=== PATIENT | female | born 1985 | race American Indian/Alaskan Native ===

== ENCOUNTER 2018-11-07 14:11 | Emergency (ER) | payer OTHER ==
--- NOTE | 2018-11-07 14:35 | Event Note ---
ED Screening Note Date of service: 11/07/18 Time: 14:34 ED Screening Note: 33 y/o female comes in for vaginal discharge with a smell and abdominal pain. This initial assessment/diagnostic orders/clinical plan/treatment(s) is/are subject to change based on patients health status, clinical progression and re- assessment by fellow clinical providers in the ED. Further treatment and workup at subsequent clinical providers discretion. Patient/guardian urged not to elope from the ED as their condition may be serious if not clinically assessed and managed. Initial orders include:
[2018-11-07 15:31] LABS: HCG Qualitative,Urine Negative (Negative)
[2018-11-07 15:37] LABS: Bacteria,Urine 1+ /HPF (Negative); Bilirubin,Urine NEG (Negative); Blood,Urine NEG (Negative); Color,Urine Yellow (Yellow); Mucus,Urine FEW /HPF; Protein,Urine <15 mg/dL mg/dL (Negative)
[2018-11-07] MEDS ORDERED: XYLOCAINE 1% MPF 5 mL INFILTRATI ONE (17:10)
[2018-11-07] MEDS ORDERED: ROCEPHIN IM ONE (17:10)
[2018-11-07] MEDS ORDERED: ZITHROMAX PO ONE (17:10)
--- NOTE | 2018-11-07 17:31 | Emergency Department Report ---
ED Female HPI - General Chief complaint: Urogenital-Female Stated complaint: STD Time Seen by Provider: 11/07/18 17:10 Source: patient Mode of arrival: Ambulatory Limitations: No Limitations - History of Present Illness Initial comments: pt is a 33 y/o aaf who presents for vaginal discharge x 3 days states contact with partner who who advises being pos for chlamydia and gonorrhea discharge is white green malodorous there is no fever no chills no n/v, lMP 2 weeks ago. Complaint: vaginal discharge Onset/Timin -: days(s) Location: suprapubic Radiation: suprapubic Severity: moderate Severity scale (0 -10): 4 Quality: other (discharge ) Consistency: constant Improves with: none Worsens with: none Are you Now?: No Last Menstrual Period: 10/24/18 EDC: 07/31/19 Associated Symptoms: vaginal discharge. denies: vaginal bleeding, abdominal pain - Related Data Sexually active: Yes Previous Rx's Medication Instructions Recorded Last Taken Type metroNIDAZOLE [Flagyl] 500 mg PO BID 10 Days #20 tab 11/07/18 Unknown Rx Allergies Allergy/AdvReac Type Severity Reaction Status Date / Time No Known Allergies Allergy Unverified 11/07/18 14:29 ED Review of Systems ROS: Stated complaint: STD Other details as noted in HPI Constitutional: denies: chills, fever Eyes: denies: eye pain, eye discharge, vision change ENT: denies: ear pain, throat pain Respiratory: denies: cough, shortness of breath, wheezing Cardiovascular: denies: chest pain, palpitations Endocrine: no symptoms reported Gastrointestinal: denies: abdominal pain, nausea, diarrhea Genitourinary: discharge. denies: urgency, dysuria, frequency, hematuria Musculoskeletal: denies: back pain, joint swelling, arthralgia Skin: denies: rash, lesions Neurological: denies: headache, weakness, paresthesias Psychiatric: denies: anxiety, depression Hematological/Lymphatic: denies: easy bleeding, easy bruising ED Past Medical Hx - Past Medical History Previous Medical History?: No - Surgical History Past Surgical History?: No - Social History Smoking Status: Current Every Day Smoker Substance Use Type: Alcohol - Medications Home Medications: Home Medications Medication Instructions Recorded Confirmed Last Taken Type metroNIDAZOLE [Flagyl] 500 mg PO BID 10 Days #20 tab 11/07/18 Unknown Rx ED Physical Exam - General Limitations: No Limitations General appearance: alert, in no apparent distress - Head Head exam: Present: atraumatic, normocephalic - Eye Eye exam: Present: normal appearance, PERRL, EOMI Pupils: Present: normal accommodation - ENT ENT exam: Present: mucous membranes moist - Neck Neck exam: Present: normal inspection - Respiratory Respiratory exam: Present: normal lung sounds bilaterally. Absent: respiratory distress - Cardiovascular Cardiovascular Exam: Present: regular rate, normal rhythm, normal heart sounds. Absent: systolic murmur, diastolic murmur, rubs, gallop - GI/Abdominal GI/Abdominal exam: Present: soft, normal bowel sounds. Absent: distended, tenderness, guarding, rebound, rigid, bruit, hernia - Rectal Rectal exam: Present: deferred - External exam: Present: other (exam deferred per patient ) - Extremities Exam Extremities exam: Present: normal inspection, full ROM, normal capillary refill. Absent: tenderness - Back Exam Back exam: Present: normal inspection, full ROM. Absent: tenderness, CVA tender ness (R), CVA tenderness (L), muscle spasm, rash noted - Neurological Exam Neurological exam: Present: alert, oriented X3, CN II-XII intact, normal gait, reflexes normal. Absent: motor sensory deficit - Psychiatric Psychiatric exam: Present: normal affect - Skin Skin exam: Present: warm, dry, intact, normal color. Absent: rash ED Course Vital Signs 11/07/18 14:33 Temperature 98.6 F Pulse Rate 87 Respiratory 16 Rate Blood Pressure 125/82 O2 Sat by Pulse 96 Oximetry ED Medical Decision Making - Lab Data Labs 11/07/18 14:44 Urine Color Yellow Urine Turbidity Slightly-cloudy Urine pH 7.0 Ur Specific Rogers 1.018 Urine Protein <15 mg/dl Urine Glucose (UA) Neg Urine Ketones Neg Urine Blood Neg Urine Nitrite Neg Ur Reducing Substances Not Reportable Urine Bilirubin Neg Urine Ictotest Not Reportable Urine Urobilinogen 2.0 Ur Leukocyte Esterase Neg Urine WBC (Auto) 1.0 Urine RBC (Auto) 2.0 U Epithel Cells (Auto) 7.0 Urine Bacteria (Auto) 1+ Urine Mucus Few Urine HCG, Qual Negative - Medical Decision Making pt requesting prophylactic tx for STD this is reasonable will tx for same pt will followup with health department for hiv and hsv screening, Critical care attestation.: If time is entered above; I have spent that time in minutes in the direct care of this critically ill patient, excluding procedure time. ED Disposition Clinical Impression: Exposure to STD Disposition: DC- TO HOME OR SELFCARE Is pt being admited?: No Does the pt Need Aspirin: No Condition: Stable Instructions: Sexually Transmitted Diseases (ED) Prescriptions: metroNIDAZOLE [Flagyl] 500 mg PO BID 10 Days #20 tab Referrals: LAKESHIA RABAGO MD [Primary Care Provider] - 3-5 Days Forms: Work/School Release Form(ED) Time of Disposition: 17:37
[2018-11-07] MEDS: DIFLUCAN PO ONE ×2 (18:06→19:01)
[2018-11-07 19:05] VITALS: BP 125/80
== END 2018-11-07 19:05 | disposition home or self-care (01) ==
LOC: ED 14:11
DX: N89.8 Other specified noninflammatory disorders of vagina (principal); F17.200 Nicotine dependence, unspecified, uncomplicated; Z79.899 Other long term (current) drug therapy
CPT/HCPCS: 81001; 81025; 96372; 99283; J0696

== ENCOUNTER 2018-12-30 19:47 | Emergency (ER) | payer OTHER ==
--- NOTE | 2018-12-30 20:05 | Event Note ---
ED Screening Note ED Screening Note: right knee pain that began a week ago no fall or injury states she injured in her teens pt states she is having mild substernal CP no SOB no V/D LNMP: last week PMHx asthma, migraines allergy to toradol, fioricet This initial assessment/diagnostic orders/clinical plan/treatment(s) is/are subject to change based on patients health status, clinical progression and re- assessment by fellow clinical providers in the ED. Further treatment and workup at subsequent clinical providers discretion. Patient/guardian urged not to elope from the ED as their condition may be serious if not clinically assessed and managed. Initial orders include: CP protocol, right knee xr
[2018-12-30 20:06] VITALS: BP 140/94
[2018-12-30 20:17] LABS: Basophils # (Auto) 0.1 K/mm3 (0.0-0.1); Basophils % (Auto) 0.7 % (0.0-1.8); Eosinophils # (Auto) 0.2 K/mm3 (0.0-0.4); Eosinophils % (Auto) 1.6 % (0.0-4.3); Hematocrit 39.6 % (30.3-42.9); Hemoglobin 13.3 gm/dl (10.1-14.3); Lymphocytes # (Auto) 3.3 K/mm3 (1.2-5.4); Lymphocytes % (Auto) 33.6 % (13.4-35.0); Mean Corpuscular HGB Conc 34 % (30-34); Mean Corpuscular Volume 90 fl (79-97); Monocytes # (Auto) 0.7 K/mm3 (0.0-0.8); Monocytes % (Auto) 6.8 % (0.0-7.3); Platelet Count 252 K/mm3 (140-440); Red Blood Count 4.41 M/mm3 (3.65-5.03); Red Cell Distribution Width 13.7 % (13.2-15.2)
[2018-12-30 20:47] LABS: BUN/Creatinine Ratio 19; Blood Urea Nitrogen 15 mg/dL (7-17); Calcium 9.2 mg/dL (8.4-10.2); Hemolysis Index 7
--- NOTE | 2018-12-30 21:35 | XRay Report ---
CHEST 2 VIEWS INDICATION: CP. COMPARISON: none FINDINGS: Support devices: None. Heart: Within normal limits. Lungs: No acute air space or interstitial disease. Pleura: No significant pleural effusion. No pneumothorax. Additional findings: None. IMPRESSION: 1. No acute findings. Signer Name: Jayden Muñiz MD Signed: 12/30/2018 9:30 PM Workstation Name: [id number]
--- NOTE | 2018-12-30 21:36 | XRay Report ---
HISTORY:right knee pain COMPARISON: None. TECHNIQUE: 3 views of the knee FINDINGS: Bones: No fracture or dislocation. Joint spaces: Maintained. Soft tissues: Small suprapatellar effusion is present. Additional findings: None. IMPRESSION: 1. No significant abnormality. Signer Name: Jayden Muñiz MD Signed: 12/30/2018 9:31 PM Workstation Name: [id number]
--- NOTE | 2018-12-30 23:43 | Emergency Department Report ---
ED General Adult HPI - General Chief complaint: Chest Pain Stated complaint: R KNEE PAIN/SWOLLEN/CHEST PAIN Time Seen by Provider: 12/30/18 20:02 Source: patient Mode of arrival: Ambulatory Limitations: No Limitations - Related Data Previous Rx's Medication Instructions Recorded Last Taken Type metroNIDAZOLE [Flagyl] 500 mg PO BID 10 Days #20 tab 11/07/18 Unknown Rx Cyclobenzaprine [Flexeril] 10 mg PO TID PRN #21 tablet 12/30/18 Unknown Rx Diclofenac EC [Voltaren] 25 mg PO Q8HR PRN #30 tablet 12/30/18 Unknown Rx Famotidine [Pepcid] 20 mg PO BID #60 tablet 12/30/18 Unknown Rx predniSONE [Deltasone] 40 mg PO QDAY 5 Days #10 tab 12/30/18 Unknown Rx Allergies Allergy/AdvReac Type Severity Reaction Status Date / Time acetaminophen [From Fioricet] Allergy Itching Verified 12/30/18 20:08 butalbital [From Fioricet] Allergy Itching Verified 12/30/18 20:08 caffeine [From Fioricet] Allergy Itching Verified 12/30/18 20:08 ketorolac [From Toradol] Allergy Itching Verified 12/30/18 20:07 ED Review of Systems ROS: Stated complaint: R KNEE PAIN/SWOLLEN/CHEST PAIN Other details as noted in HPI ED Past Medical Hx - Past Medical History Previous Medical History?: Yes Hx Headaches / Migraines: Yes Hx Asthma: Yes - Surgical History Past Surgical History?: Yes Additional Surgical History: MRSA right thigh - Social History Smoking Status: Current Every Day Smoker Substance Use Type: Alcohol - Medications Home Medications: Home Medications Medication Instructions Recorded Confirmed Last Taken Type metroNIDAZOLE [Flagyl] 500 mg PO BID 10 Days #20 tab 11/07/18 Unknown Rx Cyclobenzaprine [Flexeril] 10 mg PO TID PRN #21 tablet 12/30/18 Unknown Rx Diclofenac EC [Voltaren] 25 mg PO Q8HR PRN #30 tablet 12/30/18 Unknown Rx Famotidine [Pepcid] 20 mg PO BID #60 tablet 12/30/18 Unknown Rx predniSONE [Deltasone] 40 mg PO QDAY 5 Days #10 tab 12/30/18 Unknown Rx ED Physical Exam - General Limitations: No Limitations General appearance: alert, in no apparent distress - Head Head exam: Present: atraumatic, normocephalic - Eye Eye exam: Present: normal appearance, PERRL, EOMI. Absent: conjunctival injection, nystagmus Pupils: Present: normal accommodation - ENT ENT exam: Present: normal orophraynx, mucous membranes moist, TM's normal bilaterally, normal external ear exam - Neck Neck exam: Present: normal inspection, full ROM. Absent: tenderness, mening ismus, lymphadenopathy, thyromegaly - Respiratory Respiratory exam: Present: normal lung sounds bilaterally, chest wall tenderness (right lateral chest wall tenderness to deep palpation no crepitus no stepoff no ecchymosis ). Absent: respiratory distress, wheezes, rales, rhonchi, stridor, prolonged expiratory - Cardiovascular Cardiovascular Exam: Present: regular rate, normal rhythm, normal heart sounds. Absent: systolic murmur, diastolic murmur, rubs, gallop - GI/Abdominal GI/Abdominal exam: Present: soft, normal bowel sounds. Absent: distended, tenderness, guarding, rebound, rigid, bruit, hernia - Rectal Rectal exam: Present: deferred - Extremities Exam Extremities exam: Present: full ROM, tenderness (right anterior suprapetalar pain to deep palpation ), normal capillary refill, joint swelling. Absent: pedal edema, calf tenderness - Expanded Lower Extremity Exam Right Knee exam: Present: full ROM, tenderness, swelling, effusion (suprapetella), pain w/ pronation/supination, full knee extension. Absent: abrasion, laceration, ecchymosis, deformity, crepidus, dislocation, erythema, posterior draw sign, pain/laxity with valgus, pain/laxity with varus Lower Leg exam: Present: normal inspection, full ROM. Absent: tenderness, swelling Ankle exam: Present: normal inspection, full ROM. Absent: tenderness, swelling Foot/Toe exam: Present: normal inspection, full ROM. Absent: tenderness, swelling Neuro vascular tendon exam: Absent: pulse deficit, motor deficit, sensory deficit, tendon deficit Gait: Positive: observed and normal - Back Exam Back exam: Present: normal inspection, full ROM. Absent: tenderness, CVA tenderness (R), CVA tenderness (L), muscle spasm, paraspinal tenderness, vertebral tenderness, rash noted - Neurological Exam Neurological exam: Present: alert, oriented X3, CN II-XII intact, normal gait, reflexes normal. Absent: motor sensory deficit - Psychiatric Psychiatric exam: Present: normal affect, normal mood - Skin Skin exam: Present: warm, dry, intact, normal color. Absent: rash ED Course Vital Signs 12/30/18 20:03 Temperature 99.1 F Pulse Rate 91 H Respiratory 14 Rate Blood Pressure 140/94 O2 Sat by Pulse 99 Oximetry ED Medical Decision Making - Lab Data Result diagrams: 12/30/18 20:08 12/30/18 20:08 Lab Results 12/30/18 12/30/18 12/30/18 Range/Units 20:08 20:08 20:08 WBC 10.0 (4.5-11.0) K/mm3 RBC 4.41 (3.65-5.03) M/mm3 Hgb 13.3 (10.1-14.3) gm/dl Hct 39.6 (30.3-42.9) % MCV 90 (79-97) fl MCH 30 (28-32) pg MCHC 34 (30-34) % RDW 13.7 (13.2-15.2) % Plt Count 252 (140-440) K/mm3 Lymph % (Auto) 33.6 (13.4-35.0) % [place] % (Auto) 6.8 (0.0-7.3) % Eos % (Auto) 1.6 (0.0-4.3) % Baso % (Auto) 0.7 (0.0-1.8) % Lymph # 3.3 (1.2-5.4) K/mm3 [place] # 0.7 (0.0-0.8) K/mm3 Eos # 0.2 (0.0-0.4) K/mm3 Baso # 0.1 (0.0-0.1) K/mm3 Seg Neutrophils % 57.3 (40.0-70.0) % Seg Neutrophils # 5.7 (1.8-7.7) K/mm3 Sodium 138 (137-145) mmol/L Potassium 3.9 (3.6-5.0) mmol/L Chloride 104.8 (98-107) mmol/L Carbon Dioxide 23 (22-30) mmol/L Anion Gap 14 mmol/L BUN 15 (7-17) mg/dL Creatinine 0.8 (0.7-1.2) mg/dL Estimated GFR > 60 ml/min BUN/Creatinine Ratio 19 % Glucose 98 (65-100) mg/dL Calcium 9.2 (8.4-10.2) mg/dL Troponin T < 0.010 (0.00-0.029) ng/mL HCG, Qual Negative (Negative) - EKG Data EKG shows normal: sinus rhythm, axis, intervals, QRS complexes, ST-T waves Rate: normal - EKG Data When compared to previous EKG there are: previous EKG unavailable Interpretation: normal EKG (EKG Interp by ED Attending NSR no ST Elevated NH ) - Radiology Data Radiology results: report reviewed, image reviewed Ordering Physician: ALYCE THRASHER Date of Service: 12/30/18 Procedure(s): XR knee 3V RT Accession Number(s): [id number] cc: ALYCE THRASHER Fluoro Time In Minutes: HISTORY:right knee pain COMPARISON: None. TECHNIQUE: 3 views of the knee FINDINGS: Bones: No fracture or dislocation. Joint spaces: Maintained. Soft tissues: Small suprapatellar effusion is present. Additional findings: None. IMPRESSION: 1. No significant abnormality. Signer Name: Jayden Muñiz MD Signed: 12/30/2018 9:31 PM Workstation Name: [id number] Transcribed By: HALINA Dictated By: Jayden Muñiz MD Electronically Authenticated By: Jayden Muñiz MD Signed Date/Time: 12/30/182130 DD/ 30 TD/TT: Ordering Physician: ALYCE THRASHER Date of Service: 12/30/18 Procedure(s): XR chest routine 2V Accession Number(s): [id number] cc: ALYCE THRASHER Fluoro Time In Minutes: CHEST 2 VIEWS INDICATION: CP. COMPARISON: none FINDINGS: Support devices: None. Heart: Within normal limits. Lungs: No acute air space or interstitial disease. Pleura: No significant pleural effusion. No pneumothorax. Additional findings: None. IMPRESSION: 1. No acute findings. Signer Name: Jayden Muñiz MD Signed: 12/30/2018 9:30 PM Workstation Name: [id number] Transcribed By: HALINA Dictated By: Jayden Muñiz MD Electronically Authenticated By: Jayden Muñiz MD Signed Date/Time: 12/30/182129 DD/ 29 TD/TT: - Medical Decision Making EKG normal sinus rhythm and no ST elevated NH chest x-ray normal no infiltrates or opacities mild right lateral chest wall pain to deep palpation no deformity crepitus or ecchymosis lungs sounds are clear throughout . No wrist or distress right knee range of motion intact unrestricted some pain to pronation and supination tenderness suprapatellar region with mild effusion x-ray confirms small suprapatellar effusion plan steroids NSAIDs follow up with orthopedic heart score is 0 CHUCKY score 0 patient will be DC'd home in stable condition at this time Critical care attestation.: If time is entered above; I have spent that time in minutes in the direct care of this critically ill patient, excluding procedure time. ED Disposition Clinical Impression: Chest wall pain, Knee effusion, right Strain of knee Qualifiers: Encounter type: initial encounter Laterality: right Qualified Code(s): S86.911A - Strain of unspecified muscle(s) and tendon(s) at lower leg level, right leg, initial encounter Disposition: DC- TO HOME OR SELFCARE Is pt being admited?: No Does the pt Need Aspirin: No Condition: Stable Instructions: Costochondritis (ED), Knee Effusion (ED) Prescriptions: predniSONE [Deltasone] 40 mg PO QDAY 5 Days #10 tab Cyclobenzaprine [Flexeril] 10 mg PO TID PRN #21 tablet PRN Reason: Muscle Spasm Famotidine [Pepcid] 20 mg PO BID #60 tablet Diclofenac EC [Voltaren] 25 mg PO Q8HR PRN #30 tablet PRN Reason: pain Referrals: LORIE MOFFETT MD [Staff Physician] - 3-5 Days ETHEL LAKESHIA FITZPATRICK MD [Primary Care Provider] - 3-5 Days Forms: Work/School Release Form(ED) Time of Disposition: 23:52
[2018-12-31] MEDS ORDERED: TYLENOL PO ONE (00:17)
[2018-12-31] MEDS ORDERED: DELTASONE PO ONE (00:17)
[2018-12-31] MEDS ORDERED: FLEXERIL PO ONE (00:17)
[2018-12-31] MEDS ORDERED: TYLENOL ONE (00:21)
[2018-12-31] MEDS ORDERED: DELTASONE ONE (00:21)
[2018-12-31] MEDS ORDERED: FLEXERIL ONE (00:21)
== END 2018-12-31 00:25 | disposition home or self-care (01) ==
LOC: ED 19:47
DX: S86.911A Strain of unspecified muscle(s) and tendon(s) at lower leg level, right leg, initial encounter (principal); M25.461 Effusion, right knee; R07.89 Other chest pain; G43.909 Migraine, unspecified, not intractable, without status migrainosus; J45.909 Unspecified asthma, uncomplicated; F17.200 Nicotine dependence, unspecified, uncomplicated; Z98.890 Other specified postprocedural states; Z79.899 Other long term (current) drug therapy; Z88.6 Allergy status to analgesic agent; Z88.8 Allergy status to other drugs, medicaments and biological substances; Z91.018 Allergy to other foods; X58.XXXA Exposure to other specified factors, initial encounter; Y93.89 Activity, other specified; Y92.89 Other specified places as the place of occurrence of the external cause; Y99.8 Other external cause status
CPT/HCPCS: 36415; 71046; 73562; 80048; 84484; 84703; 85025; 93005; 93010; 99284; J7512